=== PATIENT | male | born 1965 | race Hispanic/Latino ===

== ENCOUNTER 2020-06-04 16:48 | Emergency (ER) | payer SELFPAY ==
[~2020-06-04] VITALS: Ht 172.7 cm; Wt 93.4 kg
[2020-06-04] MEDS ORDERED: SODIUM CHLORIDE 0.9% 1000ML 1,000 ML IV STA (18:04)
[2020-06-04] MEDS ORDERED: ASPIRIN 81 MG CHEW TAB PO ONE (18:15)
[2020-06-04 18:58] LABS: BASOPHILS # (AUTO) 0.1 (0.0-0.1); BASOPHILS % 0.8 % (0.0-1.0); EOSINOPHILS # (AUTO) 0.5 (0.0-0.4); EOSINOPHILS % 5.4 % (0.0-6.0); HEMATOCRIT 46.5 % (38.2-49.6); HEMOGLOBIN 15.2 g/dL (14.0-18.0); LYMPHOCYTES # (AUTO) 3.1 (1.0-3.2); LYMPHOCYTES % 35.1 % (18.0-39.1); MEAN CORPUSCULAR HGB CONC 32.7 g/dL (31-35); MEAN CORPUSCULAR VOLUME 88.7 fL (81-99); MONOCYTES # (AUTO) 0.9 (0.2-0.8); MONOCYTES % 9.7 % (4.4-11.3); NEUTROPHILS # (AUTO) 4.3 (2.1-6.9); NEUTROPHILS % 48.4 % (38.7-80.0); PLATELET COUNT 286 x10e3/uL (140-360); RED BLOOD COUNT 5.24 x10e6/uL (4.3-5.7); RED CELL DISTRIBUTION WIDTH 13.5 % (11.7-14.4)
[2020-06-04 19:13] LABS: ALANINE AMINOTRANSFERASE 46 IU/L (0-55); ALBUMIN 4.3 g/dL (3.5-5.0); ALBUMIN/GLOBULIN RATIO 1.1 (0.8-2.0); ALKALINE PHOSPHATASE 112 IU/L (40-150); ANION GAP 14.8 mmol/L (8-16); BLOOD UREA NITROGEN 27 mg/dL (7-26); BUN/CREATININE RATIO 25 (6-25); CALCIUM 9.5 mg/dL (8.4-10.2); CARBON DIOXIDE 27 mmol/L (22-29); CHLORIDE 104 mmol/L (98-107); CREATINE KINASE 160 IU/L (30-200); CREATININE, SERUM 1.06 mg/dL (0.72-1.25); EST GLOMERULAR FILTRATION RATE > 60 ML/MIN (60-); GLUCOSE 81 mg/dL (74-118); POTASSIUM 3.8 mmol/L (3.5-5.1); SODIUM 142 mmol/L (136-145)
== END 2020-06-04 20:49 | disposition home or self-care (01) ==
LOC: ER 18:10
DX: R42 Dizziness and giddiness (principal); F41.9 Anxiety disorder, unspecified
CPT/HCPCS: 36415; 70450; 71045; 80053; 82550; 82553; 83880; 84484; 85025; 99283

== ENCOUNTER 2020-07-23 10:15 | Emergency (ER) | payer SELFPAY ==
[~2020-07-23] VITALS: Ht 172.7 cm; Wt 93.4 kg
[2020-07-23 12:11] VITALS: BP 128/87
== END 2020-07-23 12:12 | disposition home or self-care (01) ==
LOC: ER 10:52
DX: R51.9 Headache, unspecified (principal); F41.9 Anxiety disorder, unspecified; I10 Essential (primary) hypertension
CPT/HCPCS: 36415; 70450; 71045; 82948; 99283

== ENCOUNTER 2020-07-23 15:03 | Emergency (ER) | payer SELFPAY ==
[~2020-07-23] VITALS: Ht 172.7 cm; Wt 93.4 kg
[2020-07-23] MEDS ORDERED: SODIUM CHLORIDE 0.9% 1000ML 1,000 ML IV STA (15:12)
[2020-07-23 15:20] LABS: BASOPHILS # (AUTO) 0.1 (0.0-0.1); BASOPHILS % 1.1 % (0.0-1.0); EOSINOPHILS # (AUTO) 0.3 (0.0-0.4); EOSINOPHILS % 3.4 % (0.0-6.0); HEMATOCRIT 41.2 % (38.2-49.6); HEMOGLOBIN 13.9 g/dL (14.0-18.0); LYMPHOCYTES # (AUTO) 2.8 (1.0-3.2); LYMPHOCYTES % 35.5 % (18.0-39.1); MEAN CORPUSCULAR HEMOGLOBIN 29.5 pg (28-32); MEAN CORPUSCULAR HGB CONC 33.7 g/dL (31-35); MEAN CORPUSCULAR VOLUME 87.5 fL (81-99); MONOCYTES # (AUTO) 0.7 (0.2-0.8); MONOCYTES % 9.1 % (4.4-11.3); NEUTROPHILS % 50.5 % (38.7-80.0); PLATELET COUNT 243 x10e3/uL (140-360); RED BLOOD COUNT 4.71 x10e6/uL (4.3-5.7); RED CELL DISTRIBUTION WIDTH 13.7 % (11.7-14.4)
[2020-07-23 15:28] LABS: CLARITY,URINE HAZY (CLEAR); COLOR,URINE YELLOW (YELLOW); KETONES,URINE NEGATIVE (NEGATIVE); LEUKOCYTE ESTERASE ,URINE NEGATIVE (NEGATIVE); NITRITE,URINE NEGATIVE (NEGATIVE); PROTEIN,URINE DIPSTICK NEGATIVE (NEGATIVE); URINE UROBILINOGEN 0.2 mg/dL (0.2 - 1)
[2020-07-23 15:31] LABS: AMPHETAMINES SCREEN,URINE NEGATIVE (NEGATIVE); BENZODIAZEPINES SCREEN,URINE NEGATIVE (NEGATIVE); PHENCYCLIDINE SCREEN,URINE NEGATIVE (NEGATIVE)
[2020-07-23 15:32] LABS: BACTERIA,URINE FEW /HPF; EPITHELIAL CELLS,URINE FEW /LPF; RBC,URINE 0-5 /HPF (0-5); WBC,URINE (MAN) 0-5 /HPF (0-5)
[2020-07-23 15:39] LABS: ALANINE AMINOTRANSFERASE 34 IU/L (0-55); ALBUMIN 4.1 g/dL (3.5-5.0); ALBUMIN/GLOBULIN RATIO 1.2 (0.8-2.0); ALKALINE PHOSPHATASE 99 IU/L (40-150); ANION GAP 14.6 mmol/L (8-16); BLOOD UREA NITROGEN 28 mg/dL (7-26); BUN/CREATININE RATIO 31 (6-25); CALCIUM 9.1 mg/dL (8.4-10.2); CARBON DIOXIDE 21 mmol/L (22-29); CHLORIDE 107 mmol/L (98-107); CREATINE KINASE 144 IU/L (30-200); CREATININE, SERUM 0.89 mg/dL (0.72-1.25); EST GLOMERULAR FILTRATION RATE > 60 ML/MIN (60-); GLUCOSE 123 mg/dL (74-118); POTASSIUM 3.6 mmol/L (3.5-5.1); SODIUM 139 mmol/L (136-145)
== END 2020-07-23 16:37 | disposition home or self-care (01) ==
LOC: ER 15:17
DX: R42 Dizziness and giddiness (principal); R51.9 Headache, unspecified; R05 Cough; F41.9 Anxiety disorder, unspecified; I10 Essential (primary) hypertension
CPT/HCPCS: 36415; 80053; 80307; 81001; 82550; 82553; 83735; 84484; 85025; 87086; 93005; 99283; J7030

== ENCOUNTER 2020-07-23 20:10 | Emergency (ER) | payer SELFPAY ==
[~2020-07-23] VITALS: Ht 172.7 cm; Wt 93.4 kg
[2020-07-23] MEDS ORDERED: HALOPERIDOL LACTATE 5 MG/ML VIAL IM ONE (20:30)
[2020-07-23 23:41] VITALS: BP 135/65
== END 2020-07-23 22:50 | disposition home or self-care (01) ==
LOC: ER 20:19
DX: R51.9 Headache, unspecified (principal); R42 Dizziness and giddiness; F41.9 Anxiety disorder, unspecified; I10 Essential (primary) hypertension
CPT/HCPCS: 93005; 99282; J1630

== ENCOUNTER 2020-08-04 13:08 | Emergency (ER) | payer SELFPAY ==
[~2020-08-04] VITALS: Ht 172.7 cm; Wt 93.4 kg
[2020-08-04] MEDS ORDERED: KETOROLAC TROMETHAMINE 60 MG/2 ML VIAL IM ONE (13:45)
[2020-08-04 15:18] VITALS: BP 158/100
== END 2020-08-04 15:20 | disposition home or self-care (01) ==
LOC: ER 13:31
DX: R51.9 Headache, unspecified (principal)
CPT/HCPCS: 70450; 99283; J1885

== ENCOUNTER 2020-08-10 12:11 | Emergency (ER) | payer SELFPAY ==
[~2020-08-10] VITALS: Ht 172.7 cm; Wt 93.4 kg
== END 2020-08-10 12:59 | disposition home or self-care (01) ==
LOC: ER 12:20
DX: F41.9 Anxiety disorder, unspecified (principal); R07.9 Chest pain, unspecified; I10 Essential (primary) hypertension
CPT/HCPCS: 93005; 99282

== ENCOUNTER 2020-08-17 21:04 | Emergency (ER) | payer SELFPAY ==
[~2020-08-17] VITALS: Ht 172.7 cm; Wt 93.4 kg
[2020-08-17 21:24] LABS: BASOPHILS # (AUTO) 0.1 (0.0-0.1); BASOPHILS % 0.7 % (0.0-1.0); EOSINOPHILS # (AUTO) 0.3 (0.0-0.4); EOSINOPHILS % 2.9 % (0.0-6.0); HEMATOCRIT 40.6 % (38.2-49.6); HEMOGLOBIN 13.6 g/dL (14.0-18.0); LYMPHOCYTES # (AUTO) 3.2 (1.0-3.2); LYMPHOCYTES % 34.1 % (18.0-39.1); MEAN CORPUSCULAR HEMOGLOBIN 29.8 pg (28-32); MEAN CORPUSCULAR HGB CONC 33.5 g/dL (31-35); MONOCYTES # (AUTO) 0.9 (0.2-0.8); MONOCYTES % 9.4 % (4.4-11.3); NEUTROPHILS # (AUTO) 4.9 (2.1-6.9); NEUTROPHILS % 52.5 % (38.7-80.0); PLATELET COUNT 261 x10e3/uL (140-360); RED BLOOD COUNT 4.56 x10e6/uL (4.3-5.7)
[2020-08-17 21:44] LABS: ALANINE AMINOTRANSFERASE 28 IU/L (0-55); ALBUMIN 4.4 g/dL (3.5-5.0); ALBUMIN/GLOBULIN RATIO 1.4 (0.8-2.0); ALKALINE PHOSPHATASE 124 IU/L (40-150); ANION GAP 15.7 mmol/L (8-16); BLOOD UREA NITROGEN 29 mg/dL (7-26); BUN/CREATININE RATIO 27 (6-25); CALCIUM 9.2 mg/dL (8.4-10.2); CARBON DIOXIDE 22 mmol/L (22-29); CHLORIDE 109 mmol/L (98-107); CREATINE KINASE 138 IU/L (30-200); CREATININE, SERUM 1.07 mg/dL (0.72-1.25); EST GLOMERULAR FILTRATION RATE > 60 ML/MIN (60-); GLUCOSE 122 mg/dL (74-118); POTASSIUM 3.7 mmol/L (3.5-5.1); SODIUM 143 mmol/L (136-145)
== END 2020-08-17 22:38 | disposition home or self-care (01) ==
LOC: ER 21:41
DX: U07.1 COVID-19 (principal); R53.1 Weakness; F41.9 Anxiety disorder, unspecified; I10 Essential (primary) hypertension
CPT/HCPCS: 36415; 80053; 82550; 82553; 84484; 85025; 93005; 99283

== ENCOUNTER 2020-08-22 19:00 | Emergency (ER) | payer SELFPAY ==
[~2020-08-22] VITALS: Ht 172.7 cm; Wt 93.4 kg
[2020-08-22] MEDS ORDERED: MECLIZINE HCL12.5 MG PO (19:32)
== END 2020-08-22 20:15 | disposition home or self-care (01) ==
LOC: ER 19:57
DX: R42 Dizziness and giddiness (principal); I10 Essential (primary) hypertension
CPT/HCPCS: 99282

== ENCOUNTER 2020-08-30 19:02 | Emergency (ER) | payer SELFPAY ==
[~2020-08-30] VITALS: Ht 172.7 cm; Wt 93.4 kg
[~2020-08-30 19:02] MED LIST: MECLIZINE HCL12.5 MG PO
== END 2020-08-30 19:40 | disposition home or self-care (01) ==
LOC: ER 19:40
DX: U07.1 COVID-19 (principal); R51.9 Headache, unspecified; I10 Essential (primary) hypertension
CPT/HCPCS: 99282

== ENCOUNTER 2021-02-12 17:51 | Emergency (ER) | payer SELFPAY ==
[~2021-02-12] VITALS: Ht 172.7 cm; Wt 93.4 kg
[2021-02-12 18:42] LABS: BASOPHILS # (AUTO) 0.1 (0.0-0.1); EOSINOPHILS # (AUTO) 0.3 (0.0-0.4); EOSINOPHILS % 3.5 % (0.0-6.0); HEMATOCRIT 46.2 % (38.2-49.6); HEMOGLOBIN 14.9 g/dL (14.0-18.0); LYMPHOCYTES # (AUTO) 3.5 (1.0-3.2); LYMPHOCYTES % 36.2 % (18.0-39.1); MEAN CORPUSCULAR HEMOGLOBIN 28.9 pg (28-32); MEAN CORPUSCULAR HGB CONC 32.3 g/dL (31-35); MEAN CORPUSCULAR VOLUME 89.5 fL (81-99); MONOCYTES # (AUTO) 1.1 (0.2-0.8); NEUTROPHILS # (AUTO) 4.6 (2.1-6.9); PLATELET COUNT 272 x10e3/uL (140-360); RED BLOOD COUNT 5.16 x10e6/uL (4.3-5.7); RED CELL DISTRIBUTION WIDTH 12.7 % (11.7-14.4)
[2021-02-12 18:59] LABS: ANION GAP 12.8 mmol/L (8-16); CALCIUM 9.3 mg/dL (8.4-10.2); CREATININE, SERUM 0.97 mg/dL (0.72-1.25); POTASSIUM 3.8 mmol/L (3.5-5.1)
[2021-02-12 19:22] VITALS: BP 159/100
== END 2021-02-12 19:23 | disposition home or self-care (01) ==
LOC: ER 18:00
DX: I10 Essential (primary) hypertension (principal); F41.9 Anxiety disorder, unspecified
CPT/HCPCS: 36415; 80048; 85025; 93005; 99283

== ENCOUNTER 2021-05-11 09:55 | Emergency (ER) | payer SELFPAY ==
[~2021-05-11] VITALS: Ht 172.7 cm; Wt 93.4 kg
== END 2021-05-11 10:52 | disposition home or self-care (01) ==
LOC: ER 10:43
DX: B34.9 Viral infection, unspecified (principal); R53.81 Other malaise; I10 Essential (primary) hypertension; Z86.16 Personal history of COVID-19
CPT/HCPCS: 99282

== ENCOUNTER 2021-08-24 12:03 | Emergency (ER) | payer SELFPAY ==
[~2021-08-24] VITALS: Ht 172.7 cm; Wt 93.4 kg
[2021-08-24] MEDS ORDERED: FLONASE ALLERG9.9 ML INH (12:22)
[2021-08-24] MEDS ORDERED: BENZONATATE200 MG PO (12:22)
[2021-08-24] MEDS ORDERED: DEXAMETHASONE SOD PHOS 10 MG/1 ML VIAL IM ONE (12:30)
== END 2021-08-24 12:26 | disposition home or self-care (01) ==
LOC: ER 12:20
DX: J30.2 Other seasonal allergic rhinitis (principal); I10 Essential (primary) hypertension; Z86.16 Personal history of COVID-19
CPT/HCPCS: 99282

== ENCOUNTER 2021-10-01 20:48 | Emergency (ER) | payer SELFPAY ==
[~2021-10-01] VITALS: Ht 172.7 cm; Wt 105.4 kg
[~2021-10-01 20:48] MED LIST changes: +BENZONATATE200 MG PO; +FLONASE ALLERG9.9 ML INH
[2021-10-01] MEDS ORDERED: SODIUM CHLORIDE 0.9% 1000ML 1,000 ML IV STA (21:20)
[2021-10-01 21:42] LABS: BASOPHILS # (AUTO) 0.1 (0.0-0.1); BASOPHILS % 0.7 % (0.0-1.0); EOSINOPHILS # (AUTO) 0.4 (0.0-0.4); EOSINOPHILS % 4.4 % (0.0-6.0); HEMATOCRIT 43.4 % (38.2-49.6); HEMOGLOBIN 14.3 g/dL (14.0-18.0); LYMPHOCYTES # (AUTO) 2.8 (1.0-3.2); LYMPHOCYTES % 33.8 % (18.0-39.1); MEAN CORPUSCULAR HEMOGLOBIN 29.9 pg (28-32); MEAN CORPUSCULAR HGB CONC 32.9 g/dL (31-35); MEAN CORPUSCULAR VOLUME 90.8 fL (81-99); MONOCYTES # (AUTO) 0.7 (0.2-0.8); MONOCYTES % 8.2 % (4.4-11.3); NEUTROPHILS # (AUTO) 4.3 (2.1-6.9); NEUTROPHILS % 52.5 % (38.7-80.0); PLATELET COUNT 242 x10e3/uL (140-360); RED BLOOD COUNT 4.78 x10e6/uL (4.3-5.7); RED CELL DISTRIBUTION WIDTH 13.1 % (11.7-14.4)
[2021-10-01 21:48] LABS: INR 0.95; PROTHROMBIN TIME 13.6 seconds (11.9-14.5)
[2021-10-01 21:49] LABS: PARTIAL THROMBOPLASTIN TIME 31.6 seconds (23.8-35.5)
[2021-10-01 21:57] LABS: ALANINE AMINOTRANSFERASE 56 IU/L (0-55); ALBUMIN 4.1 g/dL (3.5-5.0); ALKALINE PHOSPHATASE 105 IU/L (40-150); ANION GAP 13.5 mmol/L (8-16); BLOOD UREA NITROGEN 24 mg/dL (7-26); BUN/CREATININE RATIO 22 (6-25); CALCIUM 8.9 mg/dL (8.4-10.2); CARBON DIOXIDE 27 mmol/L (22-29); CHLORIDE 105 mmol/L (98-107); CREATINE KINASE 280 IU/L (30-200); CREATININE, SERUM 1.07 mg/dL (0.72-1.25); EST GLOMERULAR FILTRATION RATE 72 ML/MIN (60-); GLUCOSE 118 mg/dL (74-118); POTASSIUM 3.5 mmol/L (3.5-5.1); SODIUM 142 mmol/L (136-145)
[2021-10-01 22:01] LABS: AMPHETAMINES SCREEN,URINE NEGATIVE (NEGATIVE); BENZODIAZEPINES SCREEN,URINE NEGATIVE (NEGATIVE); CLARITY,URINE SL CLOUDY (CLEAR); COLOR,URINE YELLOW (YELLOW); KETONES,URINE NEGATIVE (NEGATIVE); LEUKOCYTE ESTERASE ,URINE NEGATIVE (NEGATIVE); NITRITE,URINE NEGATIVE (NEGATIVE); PHENCYCLIDINE SCREEN,URINE NEGATIVE (NEGATIVE); PROTEIN,URINE DIPSTICK NEGATIVE (NEGATIVE); URINE UROBILINOGEN 1 mg/dL (0.2 - 1)
[2021-10-01 22:07] LABS: BACTERIA,URINE FEW /HPF; EPITHELIAL CELLS,URINE RARE /LPF; MUCUS,URINE MODERATE (RARE)
[2021-10-01 23:04] VITALS: BP 132/91
== END 2021-10-01 23:05 | disposition home or self-care (01) ==
LOC: ER 21:02
DX: R42 Dizziness and giddiness (principal); I10 Essential (primary) hypertension; F41.9 Anxiety disorder, unspecified; M54.9 Dorsalgia, unspecified; G89.29 Other chronic pain; Z20.822 Contact with and (suspected) exposure to COVID-19
CPT/HCPCS: 36415; 70450; 71045; 80053; 80307; 81001; 82550; 82553; 83880; 84484; 85025; 85610; 85730; 93005; 99284; J7030; U0002

== ENCOUNTER 2021-10-25 19:19 | Emergency (ER) | payer SELFPAY ==
[~2021-10-25] VITALS: Ht 172.7 cm; Wt 105.2 kg
== END 2021-10-25 20:15 | disposition home or self-care (01) ==
LOC: ER 20:03
DX: F41.9 Anxiety disorder, unspecified (principal); I10 Essential (primary) hypertension; M54.9 Dorsalgia, unspecified; G89.29 Other chronic pain; Z87.442 Personal history of urinary calculi
CPT/HCPCS: 99282

== ENCOUNTER 2021-10-31 18:45 | Emergency (ER) | payer SELFPAY ==
[~2021-10-31] VITALS: Ht 172.7 cm; Wt 105.2 kg
[2021-10-31] MEDS ORDERED: ACETAMINOPHEN 325 MG TAB ONE (21:10)
== END 2021-10-31 21:04 | disposition home or self-care (01) ==
LOC: ER 19:18
DX: M25.562 Pain in left knee (principal); M17.12 Unilateral primary osteoarthritis, left knee; I10 Essential (primary) hypertension; F41.9 Anxiety disorder, unspecified; F41.0 Panic disorder [episodic paroxysmal anxiety]; M54.9 Dorsalgia, unspecified; G89.29 Other chronic pain
CPT/HCPCS: 99283

== ENCOUNTER 2021-11-07 19:18 | Emergency (ER) | payer SELFPAY ==
[~2021-11-07] VITALS: Ht 172.7 cm; Wt 105.2 kg
[2021-11-07] MEDS ORDERED: IBUPROFEN 600 MG TAB PO STA (19:23)
[2021-11-07] MEDS ORDERED: IBUPROFEN600 MG PO (19:31)
== END 2021-11-07 19:42 | disposition home or self-care (01) ==
LOC: ER 19:30
DX: M17.12 Unilateral primary osteoarthritis, left knee (principal)
CPT/HCPCS: 99283

== ENCOUNTER 2021-12-01 10:36 | Emergency (ER) | payer SELFPAY ==
[~2021-12-01] VITALS: Ht 172.7 cm; Wt 105.2 kg
[~2021-12-01 10:36] MED LIST changes: +IBUPROFEN600 MG PO
[2021-12-01 11:32] VITALS: BP 128/82
== END 2021-12-01 11:33 | disposition home or self-care (01) ==
LOC: ER 10:46
DX: R53.81 Other malaise (principal); I10 Essential (primary) hypertension; Z20.822 Contact with and (suspected) exposure to COVID-19
CPT/HCPCS: 0223U; 36415; 99282

== ENCOUNTER 2021-12-20 13:43 | Emergency (ER) | payer SELFPAY ==
[~2021-12-20] VITALS: Ht 172.7 cm; Wt 105.2 kg
== END 2021-12-20 15:17 | disposition home or self-care (01) ==
LOC: ER 13:45
DX: R09.89 Other specified symptoms and signs involving the circulatory and respiratory systems (principal); U07.1 COVID-19
CPT/HCPCS: 99283; U0002

== ENCOUNTER 2021-12-25 14:02 | Emergency (ER) | payer SELFPAY ==
[~2021-12-25] VITALS: Ht 172.7 cm; Wt 105.2 kg
== END 2021-12-25 14:32 | disposition home or self-care (01) ==
LOC: ER 14:08
DX: R51.9 Headache, unspecified (principal); U07.1 COVID-19; I10 Essential (primary) hypertension; F41.9 Anxiety disorder, unspecified; M54.9 Dorsalgia, unspecified; G89.29 Other chronic pain; Z87.442 Personal history of urinary calculi
CPT/HCPCS: 99282

== ENCOUNTER 2022-01-07 19:06 | Emergency (ER) | payer SELFPAY ==
[~2022-01-07] VITALS: Ht 172.7 cm; Wt 105.2 kg
[2022-01-07] MEDS ORDERED: ACETAMINOPHEN 325 MG TAB PO ONE (19:30)
[2022-01-07 20:42] VITALS: BP 121/85
== END 2022-01-07 20:45 | disposition home or self-care (01) ==
LOC: ER 19:13
DX: R50.9 Fever, unspecified (principal); J06.9 Acute upper respiratory infection, unspecified; I10 Essential (primary) hypertension; F41.9 Anxiety disorder, unspecified; F32.A Depression, unspecified; M54.9 Dorsalgia, unspecified; G89.29 Other chronic pain; Z20.822 Contact with and (suspected) exposure to COVID-19
CPT/HCPCS: 99283; U0002

== ENCOUNTER 2022-01-23 19:23 | Emergency (ER) | payer SELFPAY ==
[~2022-01-23] VITALS: Ht 172.7 cm; Wt 105.2 kg
[2022-01-23] MEDS ORDERED: SODIUM CHLORIDE FLUSH 10 ML SYR IV PRN (19:45)
[2022-01-23 20:21] LABS: BASOPHILS # (AUTO) 0.1 (0.0-0.1); BASOPHILS % 0.9 % (0.0-1.0); EOSINOPHILS # (AUTO) 0.3 (0.0-0.4); HEMOGLOBIN 14.2 g/dL (14.0-18.0); LYMPHOCYTES % 37.8 % (18.0-39.1); MEAN CORPUSCULAR HGB CONC 33.8 g/dL (31-35); MEAN CORPUSCULAR VOLUME 88.8 fL (81-99); MONOCYTES # (AUTO) 0.9 (0.2-0.8); MONOCYTES % 10.6 % (4.4-11.3); NEUTROPHILS # (AUTO) 3.7 (2.1-6.9); NEUTROPHILS % 46.2 % (38.7-80.0); PLATELET COUNT 280 x10e3/uL (140-360); RED BLOOD COUNT 4.73 x10e6/uL (4.3-5.7); RED CELL DISTRIBUTION WIDTH 12.6 % (11.7-14.4)
[2022-01-23 20:41] LABS: ALBUMIN 4.5 g/dL (3.5-5.0); ALBUMIN/GLOBULIN RATIO 1.3 (0.8-2.0); ANION GAP 16.8 mmol/L (8-16); CALCIUM 9.2 mg/dL (8.4-10.2); CREATININE, SERUM 1.16 mg/dL (0.72-1.25); POTASSIUM 3.8 mmol/L (3.5-5.1)
== END 2022-01-23 22:49 | disposition home or self-care (01) ==
LOC: ER 19:28
DX: R51.9 Headache, unspecified (principal); I10 Essential (primary) hypertension; F41.9 Anxiety disorder, unspecified; F41.0 Panic disorder [episodic paroxysmal anxiety]; M54.9 Dorsalgia, unspecified; G89.29 Other chronic pain
CPT/HCPCS: 36415; 70450; 71046; 80053; 84484; 85025; 93005; 99284

== ENCOUNTER 2022-03-28 21:14 | Emergency (ER) | payer SELFPAY ==
[~2022-03-28] VITALS: Ht 172.7 cm; Wt 105.2 kg
[2022-03-28 21:40] LABS: BASOPHILS # (AUTO) 0.1 (0.0-0.1); BASOPHILS % 0.3 % (0.0-1.0); EOSINOPHILS % 0.2 % (0.0-6.0); HEMATOCRIT 44.3 % (38.2-49.6); LYMPHOCYTES # (AUTO) 3.3 (1.0-3.2); LYMPHOCYTES % 20.1 % (18.0-39.1); MEAN CORPUSCULAR HEMOGLOBIN 29.8 pg (28-32); MEAN CORPUSCULAR HGB CONC 31.6 g/dL (31-35); MEAN CORPUSCULAR VOLUME 94.3 fL (81-99); MONOCYTES # (AUTO) 1.7 (0.2-0.8); MONOCYTES % 10.3 % (4.4-11.3); NEUTROPHILS # (AUTO) 11.1 (2.1-6.9); NEUTROPHILS % 68.3 % (38.7-80.0); PLATELET COUNT 283 x10e3/uL (140-360); RED CELL DISTRIBUTION WIDTH 12.6 % (11.7-14.4)
[2022-03-28 21:41] LABS: CLARITY,URINE CLOUDY (CLEAR); COLOR,URINE YELLOW (YELLOW); LEUKOCYTE ESTERASE ,URINE NEGATIVE (NEGATIVE); NITRITE,URINE NEGATIVE (NEGATIVE); PROTEIN,URINE DIPSTICK TRACE (NEGATIVE)
[2022-03-28 21:42] LABS: KETONES,URINE NEGATIVE (NEGATIVE); URINE UROBILINOGEN 0.2 mg/dL (0.2 - 1)
[2022-03-28 21:58] LABS: BACTERIA,URINE MODERATE /HPF; CALCIUM OXALATE CRYSTALS,UR MODERATE (FEW); RBC,URINE 21-50 /HPF (0-5)
[2022-03-28 22:01] LABS: ALBUMIN 4.3 g/dL (3.5-5.0); ALBUMIN/GLOBULIN RATIO 1.2 (0.8-2.0); ANION GAP 15.9 mmol/L (8-16); CALCIUM 9.4 mg/dL (8.4-10.2); CREATININE, SERUM 1.36 mg/dL (0.72-1.25); POTASSIUM 3.9 mmol/L (3.5-5.1)
[2022-03-28] MEDS ORDERED: KETOROLAC TROMETHAMINE 30 MG/ML VIAL IV STA (22:26)
[2022-03-28] MEDS ORDERED: IOPAMIDOL 370 MG/ML 100 ML INFUS..BTL INJ ONE (22:31)
[2022-03-28] MEDS ORDERED: CEFDINIR300 MG PO (22:55)
[2022-03-28] MEDS ORDERED: ONDANSETRON ODT4 MG PO (22:55)
[2022-03-28] MEDS ORDERED: KETOROLAC TROME10 MG PO (22:55)
[2022-03-28] MEDS ORDERED: FLOMAX0.4 MG PO (22:55)
[2022-03-28 23:18] VITALS: BP 149/98
== END 2022-03-28 23:17 | disposition home or self-care (01) ==
LOC: ER 21:16
DX: R10.31 Right lower quadrant pain (principal); N13.2 Hydronephrosis with renal and ureteral calculous obstruction; K76.0 Fatty (change of) liver, not elsewhere classified
CPT/HCPCS: 36415; 74177; 80053; 81001; 83690; 85025; 99284; J1885; Q9967

== ENCOUNTER 2022-04-09 18:52 | Emergency (ER) | payer SELFPAY ==
[~2022-04-09] VITALS: Ht 172.7 cm; Wt 105.2 kg
[~2022-04-09 18:52] MED LIST changes: +CEFDINIR300 MG PO; +FLOMAX0.4 MG PO; +KETOROLAC TROME10 MG PO; +ONDANSETRON ODT4 MG PO
[2022-04-09] MEDS ORDERED: BENZONATATE200 MG PO (19:41)
[2022-04-09] MEDS ORDERED: ACETAMINOPHEN 325 MG TAB PO ONE (19:45)
== END 2022-04-09 19:48 | disposition home or self-care (01) ==
LOC: ER 19:48
DX: R05.9 Cough, unspecified (principal); J06.9 Acute upper respiratory infection, unspecified; R53.81 Other malaise; I10 Essential (primary) hypertension; F41.9 Anxiety disorder, unspecified; M54.9 Dorsalgia, unspecified; G89.29 Other chronic pain
CPT/HCPCS: 99282

== ENCOUNTER 2022-06-18 18:54 | Emergency (ER) | payer SELFPAY ==
[~2022-06-18] VITALS: Ht 172.7 cm; Wt 105.2 kg
[2022-06-18] MEDS ORDERED: IBUPROFEN600 MG PO (20:02)
== END 2022-06-18 20:07 | disposition home or self-care (01) ==
LOC: ER 18:56
DX: R50.9 Fever, unspecified (principal); R53.83 Other fatigue; I10 Essential (primary) hypertension; F41.9 Anxiety disorder, unspecified; M54.9 Dorsalgia, unspecified; G89.29 Other chronic pain; Z20.822 Contact with and (suspected) exposure to COVID-19
CPT/HCPCS: 0223U; 36415; 87400; 99282

== ENCOUNTER 2022-08-10 10:37 | Emergency (ER) | payer SELFPAY ==
[~2022-08-10] VITALS: Ht 172.7 cm; Wt 105.2 kg
== END 2022-08-10 11:20 | disposition home or self-care (01) ==
LOC: ER 10:44
DX: J30.9 Allergic rhinitis, unspecified (principal)
CPT/HCPCS: 99282

== ENCOUNTER 2022-11-13 18:58 | Emergency (ER) | payer SELFPAY ==
[~2022-11-13] VITALS: Ht 172.7 cm; Wt 105.2 kg
[2022-11-13 20:32] VITALS: O2SAT 95
== END 2022-11-13 20:34 | disposition home or self-care (01) ==
LOC: ER 19:18
DX: J02.9 Acute pharyngitis, unspecified (principal); I10 Essential (primary) hypertension; M19.90 Unspecified osteoarthritis, unspecified site
CPT/HCPCS: 83518; 87070; 99282

== ENCOUNTER 2023-11-07 19:13 | Emergency (ER) | payer SELFPAY ==
[~2023-11-07] VITALS: Ht 172.7 cm; Wt 92.1 kg
[2023-11-07 20:01] VITALS: PULSE 68; RESP 17; TEMP 98.8; O2SAT 100
[2023-11-07] MEDS ORDERED: HYDROXYZINE HCL25 MG PO (21:02)
== END 2023-11-07 21:14 | disposition home or self-care (01) ==
LOC: ER 19:20
DX: F41.9 Anxiety disorder, unspecified (principal); I10 Essential (primary) hypertension; M19.09 Primary osteoarthritis, other specified site; M54.9 Dorsalgia, unspecified; G89.29 Other chronic pain
CPT/HCPCS: 93005; 99283

== ENCOUNTER 2024-01-18 19:24 | Emergency (ER) | payer SELFPAY ==
[~2024-01-18] VITALS: Ht 172.7 cm; Wt 89.9 kg
[~2024-01-18 19:24] MED LIST changes: +HYDROXYZINE HCL25 MG PO
[2024-01-18 19:40] VITALS: PULSE 68; RESP 19; TEMP 98.8; O2SAT 100
== END 2024-01-18 20:04 | disposition home or self-care (01) ==
LOC: ER 19:27
DX: R63.4 Abnormal weight loss (principal); F41.9 Anxiety disorder, unspecified; I10 Essential (primary) hypertension; M54.9 Dorsalgia, unspecified; G89.29 Other chronic pain; F32.A Depression, unspecified; Z87.442 Personal history of urinary calculi
CPT/HCPCS: 99283